=== PATIENT | female | born 2000 | race Caucasian/White ===

== ENCOUNTER 2024-11-27 10:02 | Emergency (ER) | payer BC, SELFPAY ==
[2024-11-27 10:16] VITALS: BP 128/82
--- NOTE | 2024-11-27 11:29 | ED.GENMED ---
History of Present Illness
General
Chief Complaint: Vaginal Bleeding
Source: patient
Exam Limitations: none
Time Seen by Provider: 11/27/24 10:44
History of Present Illness
History of Present Illness:
24-year-old female presents with vaginal bleeding. Patient admits she is 14 weeks . She has had an intrauterine documented already. The patient states she has a positive blood type. Patient admits that she had some cramping
that has since improved and some bleeding that was a little more than spotting. She states the bleeding seems to have improved. Spouse states she was advised by her OB to come for evaluation. She denies fevers. No dysuria.
Past History
Past History
ED Past Medical History: None
ED Past Surgical History: Appendectomy
Social History
Tobacco: Non-smoker
Alcohol: None
Drug: None
Personal: Single
Living: with roommate
Employment: Student
Family History
Family History: Other (none)
Phy Exam
Physical Exam
Physical Exam:
CONSTITUTIONAL Patient alert and oriented to person, place and time. Well-appearing. Vital signs reviewed.
HEAD atraumatic, normocephalic.
EYES eyelids normal to inspection, Extraocular muscles intact, Conjunctiva normal, Sclera normal.
NECK normal range of motion, Trachea midline, no jugular venous distention.
RESPIRATORY CHEST No respiratory distress noted, Chest expansion equal
ABDOMEN abdomen nontender, Bowel sounds normal. No distention.
BACK normal inspection, no obvious deformities
UPPER EXTREMITY range of motion normal, Motor strength normal, no cyanosis, no edema.
LOWER EXTREMITY range of motion normal, Motor strength normal, no cyanosis, no edema.
NEURO Speech normal, No focal motor deficits, Pierce coma scale 15, Memory normal, Cranial Nerves intact to screening exam.
SKIN skin warm, dry, and normal in color.
Course
Orders/Labs/Results
Orders:
Orders
11/27/24 10:52
US 1st Trimester Urgent
Reason For Exam: PVB
11/27/24 12:28
Urinalysis Reflex To Culture Urgent
Date Specimen was Collected: 11/27/24
Time Specimen was Collected: 12:42
11/27/24 12:46
Urinalysis Reflex To Culture Urgent
Date Specimen was Collected: 11/27/24
Time Specimen was Collected: 12:46
Vital Signs
Initial and Last Documented VS:
Initial Vital Signs
Temp Pulse Resp BP Pulse Ox
98.2 F 89 16 128/82 98
11/27/24 10:16 11/27/24 10:16 11/27/24 10:16 11/27/24 10:16 11/27/24 10:16
Last Documented Vital Signs
Temp Pulse Resp BP Pulse Ox
98.2 F 89 16 128/82 98
11/27/24 10:16 11/27/24 10:16 11/27/24 10:16 11/27/24 10:16 11/27/24 10:16
MDM/Problems Addressed
MDM/Problems Addressed:
vaginal bleeding, threatened miscarriage
*Radiology
Radiology exam reviewed: radiology read reviewed
*Pulse Oximetry
Patient hypoxic: no
*Critical Care Note
Total Time (30-74mins, 75-104mins- exclusive of procedures): Not Applicable
Data Reviewed
Source: patient and spouse
Further Testing Considered But Not Given:
Considered hCG testing the patient is 14 weeks and has had a previous ultrasound
Patient Management
Escalation/DeEscalation of care consider admission/obs:
Patient appears well. Bleeding improved. She will follow-up with OB. Recommended pelvic rest
ED Attending Note
-
Portions of this chart may have been created with voice recognition software.� Occasional wrong word or��sound alike� substitutions may have occurred due to the inherent limitations of voice recognition software.
Discharge Plan
Departure
Patient Disposition: Home (Routine Discharge)
Date of Disposition: 11/27/24
Time of Disposition: 13:13
Patient with high blood pressure during this ER visit?: No
Discharge Problem:
Placenta previa, Subchorionic hemorrhage
Instructions: Threatened Miscarriage (DC)
Prescriptions:
No Action
No Current Medications
0
Referrals:
Paramjit Marie MD [Family Provider] -
Activity Restrictions/Additional Instructions:
Please see your OB in the next 3 to 5 days for follow-up and reevaluation peer return immediately for worsening symptoms, abdominal pain, intractable bleeding or any other concerns.
Interventions
Interventions:
*Risk Screen - Suicide Last Done: 11/27/24 10:16
*General Assessment Last Done: 11/27/24 11:02
*Neglect/Abuse Screening Last Done: 11/27/24 10:16
*ED- Fall Risk Assessment Last Done: 11/27/24 11:02
*ED COVID-19 Vaccine History Last Done: 11/27/24 11:02
Discharge Date and Time
Print Language: TAJIK
[2024-11-27 13:13] LABS: Urine Albumin Negative (Neg - Trace); Urine Bilirubin Negative (Negative); Urine Character Clear (Clear); Urine Color Yellow; Urine Glucose Negative (Negative); Urine Ketone Negative (Negative); Urine Leukocyte Negative (Negative); Urine Nitrite Negative (Negative); Urine Occult Blood 2+ (Negative); Urine Urobilinogen Negative (Neg - 1+)
[2024-11-27 13:24] LABS: Urine Red Blood Cell 0-2 /HPF (0-2); Urine White Cell 0-2 /HPF (0-5)
[2024-11-27 13:26] VITALS: BP 132/78
== END 2024-11-27 13:28 | disposition home or self-care (01) ==
LOC: EMR 10:02
PROVIDERS: EMERGENCY PHYSICIAN Emergency Medicine; FAMILY PHYSICIAN Internal Medicine
DX: O44.02 Complete placenta previa NOS or without hemorrhage, second trimester (principal); O20.8 Other hemorrhage in early pregnancy; Z3A.14 14 weeks gestation of pregnancy; Z90.49 Acquired absence of other specified parts of digestive tract
CPT/HCPCS: 99284; 76801; 81003; 81015

== ENCOUNTER → 2024-12-14 09:57 | Outpatient (REF) | payer BC, SELFPAY | LOC: PNTC 09:57 | PROVIDERS: ATTENDING PHYSICIAN Obstetrics & Gynecology | DX: O44.20 Partial placenta previa NOS or without hemorrhage, unspecified trimester (principal) | CPT/HCPCS: 76805 ==

== ENCOUNTER → 2025-01-17 09:01 | Outpatient (REF) | payer BC, SELFPAY | LOC: PNTC 09:01 | PROVIDERS: ATTENDING PHYSICIAN Obstetrics & Gynecology | DX: O44.20 Partial placenta previa NOS or without hemorrhage, unspecified trimester (principal) | CPT/HCPCS: 76811; 76817 ==

== ENCOUNTER → 2025-03-08 10:58 | Outpatient (REF) | payer BC, SELFPAY | LOC: PNTC 10:58 | PROVIDERS: ATTENDING PHYSICIAN Advanced Practice Midwife | DX: O99.210 Obesity complicating pregnancy, unspecified trimester (principal) | CPT/HCPCS: 76816 ==

== ENCOUNTER → 2025-04-25 10:53 | Outpatient (REF) | payer BC, SELFPAY | LOC: PNTC 10:53 | PROVIDERS: ATTENDING PHYSICIAN Advanced Practice Midwife | DX: O99.210 Obesity complicating pregnancy, unspecified trimester (principal) | CPT/HCPCS: 76816 ==